=== PATIENT | male | born 1985 | race Caucasian/White ===

== ENCOUNTER 2022-07-20 15:21 | Outpatient (RCR) | payer BC, SELFPAY ==
[2022-07-20 15:21] VITALS: BP 155/90; PULSE 101; RESP 20; TEMP 36.7; O2SAT 95
[2022-07-20] MEDS: OMALIZUMAB 150 MG/ML SYRINGE 300 MG SQ (16:02)
--- NOTE | 2022-07-20 16:07 | PC.NURSE ---
Patient arrives ambulatory to [facility] and is made comfortable in the recliner. Procedure explained. Patient verbalized understanding. Consent signed. SQ injection given in the L upper arm and SQ injection given in the R upper arm. Each site is covered with a cotton ball and band aid. Patient tolerated procedure well and is waiting 20 minutes for assessment of signs and symptoms. Post 20 minutes patient denies signs and symptoms and is discharged ambulatory to home with no complaints.
[2022-08-03 15:41] VITALS: BP 134/96; PULSE 92; RESP 20; TEMP 36.6; O2SAT 95
--- NOTE | 2022-08-03 15:43 | PC.NURSE ---
PATIENT ARRIVES TO [facility] AND IS MADE COMFORTABLE IN THE RECLINER. CONSENT SIGNED. VITAL SIGNS OBTAINED. SQ INJECTIONS GIVEN IN UPPER ARMS BILATERALLY. PATIENT TOLERATED PROCEDURE WELL. EACH SITE IS COVERED WITH A COTTON BALL AND BAND AID. PATIENT IS WAITING 20 MINUTES TO EVALUATE FOR SIGNS AND SYMPTOMS OF A REACTION.
[2022-08-03] MEDS: OMALIZUMAB 150 MG/ML SYRINGE 300 MG SQ (15:55)
--- NOTE | 2022-08-03 16:14 | PC.NURSE ---
POST 20 MINUTES THE PATIENT DENIES SIGNS AND SYMPTOMS AND IS DISCHARGED AMBULATORY TO HOME WITH NO COMPLAINTS.
== END 2022-08-18 23:59 | disposition home or self-care (01) ==
LOC: INF 15:21
PROVIDERS: PCP Internal Medicine; Visit Provider Internal Medicine
DX: J45.50 Severe persistent asthma, uncomplicated (principal)
CPT/HCPCS: 96372; J2357

== ENCOUNTER 2023-04-23 08:25 | Outpatient (OUT) | payer OTHER, SELFPAY ==
[2023-04-23 08:42] LABS: Hemoglobin 14.7 g/dL (14.0-18.0)
== END 2023-04-23 08:26 | disposition home or self-care (01) ==
LOC: CARD 08:27
PROVIDERS: PCP Family Medicine; Visit Provider Internal Medicine
DX: J45.50 Severe persistent asthma, uncomplicated (principal)
CPT/HCPCS: 36415; 85018

== ENCOUNTER 2023-10-01 12:23 | Outpatient (OUT) | payer OTHER, SELFPAY ==
[2023-10-01 12:31] LABS: Hemoglobin 14.6 g/dL (14.0-18.0)
[2023-10-01] MEDS: ALBUTEROL SULFATE 2.5 MG/3 ML VIAL NEB IH (14:11)
== END 2023-10-01 12:24 | disposition home or self-care (01) ==
LOC: CARD 12:23
PROVIDERS: PCP Family Medicine; Visit Provider Internal Medicine
DX: J45.50 Severe persistent asthma, uncomplicated (principal)
CPT/HCPCS: 36415; 85018; 94060; 94726; 94729